=== PATIENT | male | born 2000 | race Two or more races ===

== ENCOUNTER 2024-11-22 02:46 | Emergency (ER) | payer OTHER ==
[~2024-11-22] VITALS: Ht 175.3 cm; Wt 77.4 kg
[2024-11-22 03:00] VITALS: BP 148/92; PULSE 85; RESP 18; TEMP 97.1; O2SAT 97
[2024-11-22] MEDS: LIDOCAINE 1% HCL (LOCAL ANESTH.) INJ 20ML MDV ID ONE (03:46)
[2024-11-22] MEDS: TETANUS-DIPTH-ACEL PERTUSSIS 0.5ML SYR Tdap IM ONE (04:30)
[2024-11-22] MEDS ORDERED: AUG875T PO (04:32)
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
== END 2024-11-22 05:06 | disposition home or self-care (01) ==
LOC: ER 02:46
DX: S81.812A Laceration without foreign body, left lower leg, initial encounter (principal); W45.8XXA Other foreign body or object entering through skin, initial encounter; Y93.39 Activity, other involving climbing, rappelling and jumping off; Y92.89 Other specified places as the place of occurrence of the external cause; Y99.8 Other external cause status
CPT/HCPCS: 12001; 90471; 90715; 99283; J2003

== ENCOUNTER 2025-06-06 19:07 | Emergency (ER) | payer SELFPAY ==
[~2025-06-06] VITALS: Ht 175.3 cm; Wt 81.6 kg
[2025-06-06 19:09] VITALS: BP 137/93; PULSE 119; RESP 18; TEMP 99.5; O2SAT 94
--- NOTE | 2025-06-06 19:21 | ED.PDOC ---
Chief Complaint: Laceration Time Seen by MD: 19:12 Reviewed Notes: Nurses Notes, Medications, Allergies Allergies: Coded Allergies: NO KNOWN ALLERGIES (Unverified , 06/06/25) Information Source: Patient Mode of Arrival: Ambulatory Past Medical History PAST MEDICAL HISTORY: Denies Surgical History: Denies all surgeries Family History Family History: Reviewed,noncontributory to illness Social History Smoker: Non-Smoker Alcohol: Denies ETOH Use Drugs: Denies Drug Use All Other Systems: Reviewed and Negative (SEE HPI) Physical Exam General Appearance: No Apparent Distress, Normal HEENT: Pharynx Normal Neck: Full Range of Motion, Non-Tender Respiratory: Lungs Clear, No Respiratory Distress, Normal Breath Sounds Cardiovascular: No Murmur, Normal Peripheral Pulses, Regular Rate/Rhythm Breast Exam: Deferred Gastrointestinal: Non Tender, Soft Genitalia: Deferred Pelvic: Deferred Rectal: Deferred Extremities: Normal capillary refill, Normal range of motion Musculoskeletal : Apperance: Normal Neurologic: Alert, No Motor Deficits, Normal Affect, Normal Mood, No Sensory Deficits Cerebellar Function: Normal Reflexes: NOT DONE Skin: Dry, Lacerations, Normal Color, Warm Lymphatic: No Adenopathy Was a procedure done? Was a procedure done?: Yes Sedation Sedation?: No Informed consent obtained: Yes Differential diagnosis Generic Laceration: Retained Foriegn Body, Neurovascular Injury, Tendon Injury, Abrasion/Contusion, Laceration, Avulsion X-Ray, Labs, Meds, VS Vital Signs Date Time Temp Pulse Resp B/P (MAP) Pulse Ox O2 Delivery O2 Flow Rate FiO2 06/06/25 19:09 99.5 119 18 137/93 94 99.5 Reevaluation 1ST: Unchanged Reevaluation 2ND: Improved Patient Education/Counseling: Diagnosis, Treatment, Prognosis, Need For Follow Up Family Education/Counseling: No Family Present Departure 1 Departure Disposition: 07 LEFT WITHOUT BEING TRIAGED Condition: Stable Discharged With: Self Critical Care Note Critical Care Time?: No Stability Stability form required: ABIMAEL Smith Jun 06, 2025 19:21
== END 2025-06-06 20:17 | disposition left against medical advice (07) ==
LOC: ER 19:07
DX: S51.812A Laceration without foreign body of left forearm, initial encounter (principal); X58.XXXA Exposure to other specified factors, initial encounter; Y93.89 Activity, other specified; Y92.89 Other specified places as the place of occurrence of the external cause; Y99.8 Other external cause status